=== PATIENT | male | born 1975 | race Hispanic/Latino ===

== ENCOUNTER 2016-05-14 13:05 | Inpatient (IN) | payer OTHER ==
[2016-05-14] MEDS ORDERED: Aspirin 325 mg EC Tablets PO STA (13:56)
[2016-05-14] MEDS ORDERED: Aspirin 325 mg EC Tablets PO ONE (14:10)
[2016-05-14 14:13] LABS: BASO % 0.4 % (0.0-2.0); EOS # 0.1 K/uL (0.0-0.7); EOS % 0.6 % (0.0-4.0); HEMATOCRIT 49.6 % (35.0-51.0); LYMPH # 1.7 K/uL (1.0-4.3); LYMPH % 17.5 % (20.0-40.0); MEAN CORPUSCULAR HEMOGLOBIN 30.3 pg (27.0-31.0); MEAN CORPUSCULAR HGB CONC 33.7 g/dL (33.0-37.0); MEAN PLATELET VOLUME 9.6 fL (7.2-11.7); MONO # 0.6 K/uL (0.0-0.8); MONO % 6.2 % (0.0-10.0); RED CELL DISTRIBUTION WIDTH 12.9 % (11.5-14.5); WHITE BLOOD COUNT 9.6 K/uL (4.8-10.8)
[2016-05-14 14:19] LABS: CHLORIDE 100 mmol/L (98-107)
[2016-05-14 14:20] LABS: POTASSIUM 3.9 mmol/L (3.6-5.2); SODIUM 139 mmol/L (132-148)
[2016-05-14 14:21] LABS: PARTIAL THROMBOPLASTIN TIME 34 SECONDS (21-34)
[2016-05-14 14:22] LABS: ALB/GLOB RATIO 1.5 (1.0-2.1); AST/SGOT 21 U/L (17-59); BILIRUBIN,TOTAL 0.8 mg/dL (0.2-1.3); BLOOD UREA NITROGEN 11 mg/dL (9-20); CARBON DIOXIDE 25 mmol/L (22-30); CHOLESTEROL 237 mg/dL (0-199); GFR AFRICAN-AMERICAN > 60; TOTAL PROTEIN 7.9 g/dL (6.3-8.3)
[2016-05-14 14:23] LABS: ALKALINE PHOSPHATASE 55 U/L (38-126); ALT/SGPT 41 U/L (21-72); CALCIUM 9.2 mg/dl (8.6-10.4); GLUCOSE,RANDOM 76 mg/dL (75-110)
--- NOTE | 2016-05-14 15:09 | RAD ---
PROCEDURE: CHEST RADIOGRAPH, 1 VIEW HISTORY: Left chest pain COMPARISON: Yes AP FINDINGS: LUNGS: Clear. PLEURA: No pneumothorax or pleural fluid seen. CARDIOVASCULAR: Normal. OSSEOUS STRUCTURES: No significant abnormalities. VISUALIZED UPPER ABDOMEN: Normal. OTHER FINDINGS: None. IMPRESSION: No active disease.
--- NOTE | 2016-05-14 15:50 | C.PDOC ---
Time Seen by Provider: 05/14/16 13:48 Chief Complaint (Nursing): Chest Pain History Per: Patient Onset/Duration Of Symptoms: Hrs (since this morning) Current Symptoms Are (Timing): Still Present Severity: Moderate Quality: Pressure, Squeezing, "Pain" Modifying Factors: Other Indicated Below Alleviating Factors: None Nitro Therapy Administered: 1, Per ED, Partial Relief Additional History Per: Prior Records Past Medical History Reviewed: Historical Data, Nursing Documentation, Vital Signs Vital Signs: Last Vital Signs Temp 97.5 F L 05/14/16 13:10 Pulse 71 05/14/16 14:16 Resp 20 05/14/16 14:16 BP 120/83 05/14/16 14:16 Pulse Ox 96 05/14/16 14:16 - Medical History PMH: HTN Surgical History: No Surg Hx Family History: States: Unknown Family Hx - Social History Hx Tobacco Use: Yes Hx Alcohol Use: Yes Hx Substance Use: No - Immunization History Hx Tetanus Toxoid Vaccination: No Hx Influenza Vaccination: No Hx Pneumococcal Vaccination: No Review Of Systems Except As Marked, All Systems Reviewed And Found Negative. Constitutional: Negative for: Fever, Weakness Cardiovascular: Positive for: Chest Pain Respiratory: Negative for: Hemoptysis Gastrointestinal: Negative for: Vomiting, Abdominal Pain Musculoskeletal: Negative for: Neck Pain, Back Pain, Leg Pain Skin: Negative for: Rash Neurological: Negative for: Weakness, Numbness, Seizures, Altered Mental Status Physical Exam - Physical Exam Appears: Non-toxic, No Acute Distress Skin: Normal Color, Warm, Dry Head: Atraumatic, Normacephalic Eye(s): bilateral: PERRL, EOMI Neck: Normal ROM, Supple Chest: Symmetrical, No Deformity, No Tenderness Cardiovascular: Rhythm Regular Respiratory: Normal Breath Sounds, No Accessory Muscle Use Gastrointestinal/Abdominal: Soft, No Tenderness Back: No CVA Tenderness Extremity: Normal ROM, No Pedal Edema, No Calf Tenderness Extremity: Bilateral: Normal Color And Temperature Neurological/Psych: Oriented x3, Normal Motor, Normal Sensation ED Course And Treatment - Laboratory Results Result Diagrams: 05/14/16 14:08 05/14/16 14:08 Interpretation Of Abnormal: Abnormal lipid panel. ECG: Interpreted By Me, Viewed By Me ECG Rhythm: Sinus Rhythm, R BBB, Nonspecific Changes ECG Interpretation: Abnormal Interpretation Of ECG: No previous EKG available for comparison. Rate From EC O2 Sat by Pulse Oximetry: 96 Pulse Ox Interpretation: Normal - Radiology CXR: Viewed By Me, Read By Radiologist CXR Interpretation: Yes: No Acute Disease, Heart Size (WNL) Progress - Interventions Interventions:: Observation, Oxygen - Medications Administered Oral: Aspirin - Data Reviewed Data Reviewed: Lab, Diagnostic imaging, EKG, Old records - Patient Status Patient status: Partially improved - Continuity of Care Discussed patient case with:: Patient, Family-HIPPA compliant, ED Nurse, On- call PMD-pt unassigned Disposition Discussed With DrEmber: Rowena Nascimento Comment: He agreed with ED management and accepted pt on his service. Doctor Will See Patient In The: Hospital Counseled Patient/Family Regarding: Studies Performed, Diagnosis, Smoking Cessation - Disposition Disposition: HOSPITALIZED Disposition Time: 15:52 Condition: FAIR - Clinical Impression Clinical Impression: Chest pain, Right bundle branch block (RBBB) on electrocardiogram (ECG)
--- NOTE | 2016-05-14 20:20 | CP.PCM.HP ---
History of Present Illness - History of Present Illness History of Present Illness: COMPREHENSIVE HISTORY & PHYSICAL EXAM HPI DEVELOPED RETROSTERNAL CP A/W DIAPHORESIS THIS AM . MILD IMPROVEMENT WITH NTG BY PARAMEDICS. H/O CP FOR SOMETIME. HAD SOME WORK UP DONE IN PAST FOR CP H/O HTN PAST HIST. PERSONAL HIST: Smoking. YES Alcohol. N Allergy N Travel _- . FAMILY HIST : ROS : Constitutional: Negative for weight change, chills, night sweats, fatigue and usage of assist device. Eyes: Negative for redness, swelling, itching, discharge, vision changes, blurry vision, double vision, glaucoma, cataracts, Ears: Negative for hearing loss, ringing, , tinnitus, vertigo Nose: Negative for rhinorrhea, stuffiness, sniffing, itching, postnasal drip, discoloration, nasal congestion and epistaxis. Throat: Negative for throat clearing, sore throat, hoarseness, difficulty swallowing and difficulty speaking. Respiratory: Negative for cough, chest tightness, sputum or phlegm, chronic cough, hemoptysis, wheezing, snoring at night, pleuritic chest pain and daytime somnolence. Cardiovascular: POS for chest pain, palpitations, NO orthopnea, PND, Edema of legs, leg cramps, angina, claudication, , irregular heartbeat, Neurology: Negative for irritability, muscle weakness, numbness and tingling, seizures, tremors, migraines, slurred speech, syncope, memory loss, mood changes , recurrent headaches Gastrointestinal: Negative for difficulty swallowing, diarrhea, constipation, black stools, rectal bleeding, nausea, flatulence, reflux, poor appetite, changes in bowel habits, abdominal pain Genitourinary: Negative for frequent urination, hematuria, discharge, incontinence, urinary retention, frequent UTI, Psychiatric: Negative for depression, anxiety/panic, suicidal tendencies, Musculoskeletal: Negative for swollen joints, back pain, , neck pain, morning stiffness of joints, . Skin: Negative for rash, ulcers, itching, dry skin and pigmented lesions. P/E: Constitutional: Appears stated age and in no apparent distress. Head: Normocephalic. Ears: External ear canals patent without inflammation. Tympanic membranes intact with normal light reflex and landmark. Eyes: Pupils are central, bilaterally equal, symmetrical and reacts to light with normal movements and no icterus or pallor. Nose: External nares are patent. Mucosa is pink Mouth-Throat: Good general appearance and condition. No post-pharyngeal/oropharyngeal erythema and tonsillar hypertrophy. Good dental hygiene. Neck-Lymphatic: Neck is supple with normal ROM, no thyromegaly, lymph nodes or masses. JVD is normal with no carotid bruit. Lungs: Clear to percussion and auscultation with bilateral normal air entry. Cardiovascular: S1 and S2 are normal with no murmurs, gallops and rub. GI Exam: No hepatomegaly. Abdomen is soft and non-tender. No Organomegaly , masses or hernias are evident and bowel sounds are normal and active. Neurology: Higher function and all cranial nerves intact, with no gross motor or sensory deficit. Superficial and deep reflexes are normal with downwards planters. No cerebellar deficit with normal gait. Musculoskeletal: No tender spots with normal curvature of the spine with no swelling or restricted ROM of the small and large joints. Extremities: Homans sign absent. Intact pulses with no pitting edema, calf tenderness or skin color changes. Skin: No rash, eruptions or abnormal skin pigmentation LAB/RADIOLOGY: ASSESMENT : UNSTABLE ,REST CHEST PAIN ,CAD HTN H/O SMOKING Present on Admission - Present on Admission Any Indicators Present on Admission: No Past Patient History - Past Social History Smoking Status: Heavy Smoker > 10 Cigarettes Daily - CARDIAC Hx Hypertension: Yes - PSYCHIATRIC Hx Substance Use: No - SURGICAL HISTORY Hx Surgeries: No - ANESTHESIA Hx Anesthesia: No Hx Anesthesia Reactions: No Meds Allergies/Adverse Reactions: Allergies Allergy/AdvReac Type Severity Reaction Status Date / Time No Known Allergies Allergy Verified 05/14/16 13:22 Results - Vital Signs Recent Vital Signs: Last Vital Signs Temp 98.4 F 05/14/16 18:47 Pulse 69 05/14/16 18:47 Resp 20 05/14/16 18:47 BP 129/72 05/14/16 18:47 Pulse Ox 96 05/14/16 18:47 - Labs Result Diagrams: 05/14/16 14:08 05/14/16 14:08
--- NOTE | 2016-05-15 13:21 | CP.PCM.PN ---
Subjective - Date & Time of Evaluation Date of Evaluation: 05/15/16 Time of Evaluation: 13:20 - Subjective Subjective: CHIEF COMPLAINTS TODAY : NO CP TNI ARE NEG ROS. HEENT : N. Resp : No cough, wheezing ,pleuritic CP ,or hemoptysis Cardio : No anginal CP, PND, orthopnea, palpitation GI : No abd.pain, n/v ,diarrhea or GI bleeding . [employer] : No headache, vertigo, focal deficit. Musculoskel : No joint swelling , Derm : No rash Psych : Normal affect. Ext : No swelling ,calf pain PE. Pt. is alert awake in no distress. V.S As noted in the chart Head ,ear nose,throat and eyes : Normal. Neck : Supple with normal carotids. Lungs: Clear air entry. Heart : S1 & S2 normal with S4. No murmur. Abd : Soft non tender with normal bowel sounds. Neuro : Moves all ext. with no localized deficit. Ext : No edema with intact pulses.Non tender calves Derm : No rashes or decubitus ulcer. LABS/RADIOLOGY: EKG PENDING ASSESSMENT/PLAN : WILL D/W PT THE WORK UP FOR CAD Objective - Vital Signs/Intake and Output Vital Signs (last 24 hours): Temp Pulse Resp BP Pulse Ox 96.4 F L 63 15 115/68 97 05/15/16 08:00 05/15/16 12:00 05/15/16 12:00 05/15/16 12:00 05/15/16 12:00 Intake and Output: 05/15/16 05/15/16 11:59 23:59 Intake Total 440 240 Output Total 750 Balance -310 240 - Medications Medications: Current Medications Metoprolol Succinate (Toprol Xl) 50 mg PO DAILY TRACEE - Labs Labs: PT 11.6 SECONDS (9.7-12.2) 05/14/16 14:08 INR 1.0 05/14/16 14:08 APTT 34 SECONDS (21-34) 05/14/16 14:08
[2016-05-15] MEDS: Metoprolol Succinate 50 mg XL Tab PO SCH (17:13)
[2016-05-16] MEDS: Metoprolol Succinate 50 mg XL Tab PO SCH (10:00)
--- NOTE | 2016-05-16 10:45 | CARD ---
APPROVED REPORT EKG Measurement Heart [id number] <Conclusion> Sinus bradycardia Left axis deviation Right bundle branch block Abnormal ECG
--- NOTE | 2016-05-16 13:06 | CP.PCM.PN ---
Subjective - Date & Time of Evaluation Date of Evaluation: 05/16/16 Time of Evaluation: 13:05 - Subjective Subjective: NO FURTHER CP DOCUMENTED D/W PT. AND THE DETAIL PROCEDURE OF CARDIAC CATH, AND RISK AND OTHER ALTERNATE TEST. PT SIGNED INFORMED CONSENT Objective - Vital Signs/Intake and Output Vital Signs (last 24 hours): Temp Pulse Resp BP Pulse Ox 96.1 F L 57 L 12 121/70 97 05/16/16 08:00 05/16/16 08:00 05/16/16 08:00 05/16/16 08:00 05/16/16 08:00 Intake and Output: 05/16/16 05/16/16 11:59 23:59 Intake Total 0 Balance 0 - Medications Medications: Current Medications Metoprolol Succinate (Toprol Xl) 50 mg PO DAILY TRACEE Last Admin: 05/15/16 17:13 Dose: Not Given - Labs Labs: PT 11.6 SECONDS (9.7-12.2) 05/14/16 14:08 INR 1.0 05/14/16 14:08 APTT 34 SECONDS (21-34) 05/14/16 14:08
[2016-05-16] MEDS ORDERED: Iohexol 350mg/ml 100 ML ONE (16:58)
[2016-05-16] MEDS ORDERED: Lidocaine 2% Inj (20ml) ONE (16:59)
--- NOTE | 2016-05-16 21:24 | CARDCATH ---
PROCEDURE DATE: 05/16/2016 The patient was admitted for unstable angina, history of hypertension and smoking. The patient under went a left heart catheterization. Left heart cath was done through the right femoral artery and #6 introducer sheath was inserted without any complication and manual pressure was used post cath. Judk ins was used for the left and right and pigtail for LV angiogram. Left main is a normal vessel, which gives around LAD. The main trunk of the LAD goes around the apex with no lesions. The diagonal 1 and 2 are normal vessels. Circumflex is also a large vessel with no lesions in the main trunk and in its branches. Right coron kennedi is a dominant vessel with large posterolateral branches. The main trunk of the RCA has no lesion s and its branches have no lesions. The hand injection of the LV angiogram shows normal wall motion with EF of 55%. FINAL CONCLUSION: Normal coronary arteries with normal left ventricular function. PLAN: Workup for known cardiac chest pain. Rowena Nascimento MD cc: [id number] TT: 05/16/2016 21:24:15 fili
[2016-05-16] MEDS ORDERED: Aluminum Hydroxide/Magnesium Hydroxide Susp (30 mL) PO STA (23:11)
[2016-05-17] MEDS: Metoprolol Succinate 50 mg XL Tab PO SCH (09:22)
[2016-05-17 11:20] VITALS: BP 115/64; PULSE 63; RESP 19; TEMP 98.4; O2SAT 99
--- NOTE | 2016-05-17 13:54 | CP.PCM.DIS ---
Provider - Provider Date of Admission: 05/15/16 16:00 Attending physician: Rowena Nascimento MD Time Spent in preparation of Discharge (in minutes): 35 Hospital Course - Lab Results Lab Results: Most Recent Lab Values WBC 9.6 K/uL (4.8-10.8) 05/14/16 14:08 RBC 5.52 Mil/uL (4.40-5.90) 05/14/16 14:08 Hgb 16.7 g/dL (12.0-18.0) 05/14/16 14:08 Hct 49.6 % (35.0-51.0) 05/14/16 14:08 MCV 90.0 fL (80.0-94.0) 05/14/16 14:08 MCH 30.3 pg (27.0-31.0) 05/14/16 14:08 MCHC 33.7 g/dL (33.0-37.0) 05/14/16 14:08 RDW 12.9 % (11.5-14.5) 05/14/16 14:08 Plt Count 264 K/uL (130-400) 05/14/16 14:08 MPV 9.6 fL (7.2-11.7) 05/14/16 14:08 Neut % (Auto) 75.3 % (50.0-75.0) H 05/14/16 14:08 Lymph % (Auto) 17.5 % (20.0-40.0) L 05/14/16 14:08 [place] % (Auto) 6.2 % (0.0-10.0) 05/14/16 14:08 Eos % (Auto) 0.6 % (0.0-4.0) 05/14/16 14:08 Baso % (Auto) 0.4 % (0.0-2.0) 05/14/16 14:08 Neut # 7.2 K/uL (1.8-7.0) H 05/14/16 14:08 Lymph # 1.7 K/uL (1.0-4.3) 05/14/16 14:08 [place] # 0.6 K/uL (0.0-0.8) 05/14/16 14:08 Eos # 0.1 K/uL (0.0-0.7) 05/14/16 14:08 Baso # 0.0 K/uL (0.0-0.2) 05/14/16 14:08 PT 11.6 SECONDS (9.7-12.2) 05/14/16 14:08 INR 1.0 05/14/16 14:08 APTT 34 SECONDS (21-34) 05/14/16 14:08 D-Dimer, Quantitative < 200 ng/mlDDU (0-243) 05/14/16 14:08 Sodium 139 mmol/L (132-148) 05/14/16 14:08 Potassium 3.9 mmol/L (3.6-5.2) 05/14/16 14:08 Chloride 100 mmol/L (98-107) 05/14/16 14:08 Carbon Dioxide 25 mmol/L (22-30) 05/14/16 14:08 Anion Gap 19 (10-20) 05/14/16 14:08 BUN 11 mg/dL (9-20) 05/14/16 14:08 Creatinine 0.7 MG/DL (0.8-1.5) L 05/14/16 14:08 Est GFR ( Amer) > 60 05/14/16 14:08 Est GFR (Non-Af Amer) > 60 05/14/16 14:08 Random Glucose 76 mg/dL (75-110) 05/14/16 14:08 Calcium 9.2 mg/dl (8.6-10.4) 05/14/16 14:08 Total Bilirubin 0.8 mg/dL (0.2-1.3) 05/14/16 14:08 AST 21 U/L (17-59) 05/14/16 14:08 ALT 41 U/L (21-72) 05/14/16 14:08 Alkaline Phosphatase 55 U/L (38-126) 05/14/16 14:08 Total Creatine Kinase 70 U/L (55-170) 05/15/16 06:30 CK-MB (Mass) 0.32 ng/mL (0.0-3.38) 05/15/16 06:30 Troponin I, Quant < 0.0120 ng/mL (0.00-0.120) 05/15/16 06:30 NT-Pro-B Natriuret Pep 23.5 pg/mL (0-450) 05/14/16 14:08 Total Protein 7.9 g/dL (6.3-8.3) 05/14/16 14:08 Albumin 4.7 g/dL (3.5-5.0) 05/14/16 14:08 Globulin 3.2 gm/dL (2.2-3.9) 05/14/16 14:08 Albumin/Globulin Ratio 1.5 (1.0-2.1) 05/14/16 14:08 Triglycerides 334 mg/dL (0-149) H 05/14/16 14:08 Cholesterol 237 mg/dL (0-199) H 05/14/16 14:08 LDL Cholesterol Direct 151 mg/dL (0-129) H 05/14/16 14:08 HDL Cholesterol 40 mg/dL (30-70) 05/14/16 14:08 - Hospital Course Hospital Course: DEVELOPED RETROSTERNAL CP A/W DIAPHORESIS THIS AM . MILD IMPROVEMENT WITH NTG BY PARAMEDICS. H/O CP FOR SOMETIME. HAD SOME WORK UP DONE IN PAST FOR CP H/O HTN TNI WERE NEG PT HAD ON GOING CP AFTER INFORMED CONSENT , LEFT HEART ANGIOGRAM SHOWED NORMAL CORONARIES AND LF EV PT D/C ON CRESTOR AND HTN MEDS W/U FOR GI Discharge Plan - Follow Up Plan Condition: FAIR Disposition: HOME/ ROUTINE Instructions: How to Stop Smoking (GEN)
--- NOTE | 2016-05-17 19:56 | CARD ---
APPROVED REPORT EKG Measurement Heart [id number] <Conclusion> Normal sinus rhythm Right bundle branch block Abnormal ECG
== END 2016-05-17 11:31 | disposition home or self-care (01) | DRG 287 ==
LOC: C.ER 13:05 → C.9E 15:54 → C.9I 21:09 → OBSVTOIN 05-15 16:00
PROVIDERS: ADMIT Internal Medicine Cardiovascular Disease; ATTEND Internal Medicine Cardiovascular Disease
PROC: 4A023N7 Measurement of Cardiac Sampling and Pressure, Left Heart, Percutaneous Approach (ICD-10-PCS; principal; 2016-05-16)
PROC: B2151ZZ Fluoroscopy of Left Heart using Low Osmolar Contrast (ICD-10-PCS; 2016-05-16)
PROC: B2111ZZ Fluoroscopy of Multiple Coronary Arteries using Low Osmolar Contrast (ICD-10-PCS; 2016-05-16)
DX: R07.89 Other chest pain (principal); I10 Essential (primary) hypertension; I45.10 Unspecified right bundle-branch block; F17.210 Nicotine dependence, cigarettes, uncomplicated; Z79.82 Long term (current) use of aspirin